=== PATIENT | male | born 1950 | race Caucasian/White ===

== ENCOUNTER 2022-08-04 05:35 | Inpatient (IN) | payer MEDICARE, OTHER ==
[~2022-08-04] VITALS: Ht 175.3 cm; Wt 76.5 kg
[~2022-08-04 05:35] MED LIST: DICL100G51 TP; DULA0.75 SQ; ENAL20 PO; FLUT220HFA IH; FLUT44H IH; GABA-1216 PO; GLUC1TAB61 PO; ISOSM20 PO; LORA10TA7 PO; METF-1211 PO; OMEP20 PO; RINGERS SOLUTION,LACTATED 1,000 ML IV ONE; TAMS-13 PO
[2022-08-04] MEDS ORDERED: ETHYL ALCOHOL 62% ANTISEPTIC NASAL SANITIZER 0.6 ML AMPUL NASAL ONE (06:00)
[2022-08-04 06:29] LABS: COVID AG,FIA SOURCE NASAL SWAB
[2022-08-04 06:32] LABS: BASOPHILS % (AUTO) 1.8 % (0.0-2.0); EOSINOPHILS % (AUTO) 5.7 % (1.0-6.0); HEMATOCRIT 41.2 % (41-53); HEMOGLOBIN 13.8 g/dL (13.5-17.5); LYMPHOCYTES # (AUTO) 1.1 K/uL (1.0-4.8); LYMPHOCYTES % (AUTO) 24.6 % (22.0-44.0); MEAN CORPUSCULAR HEMOGLOBIN 30.2 pg (26.0-34.0); MEAN CORPUSCULAR HGB CONC 33.5 G/dL (31.0-37.0); MEAN CORPUSCULAR VOLUME 90 fL (80-100); MONOCYTES # (AUTO) 0.6 K/uL (0.1-1.0); MONOCYTES % (AUTO) 14.3 % (2.0-9.0); NEUTROPHILS # (AUTO) 2.4 K/uL (1.8-7.7); NEUTROPHILS % (AUTO) 53.6 % (40.0-70.0); PLATELET COUNT (AUTO) 287 K/uL (150-450); RED BLOOD CELL COUNT(AUTO) 4.57 MIL/uL (4.50-5.90); RED CELL DISTRIBUTION WIDTH 13.9 % (11.5-14.5)
[2022-08-04] MEDS ORDERED: VANCOMYCIN HCL 1 GM/VIAL ONE (06:44)
[2022-08-04] MEDS ORDERED: SODIUM CL IRRIG SOLN BAG 3,000 ML IRRIG ONE (06:44)
[2022-08-04] MEDS ORDERED: BUPIVACAINE HCL/PF 0.5% 30 ML VIAL ONE (06:44)
[2022-08-04] MEDS ORDERED: SODIUM CHLORIDE 0.9% 60 ML ONE (06:44)
[2022-08-04 06:45] LABS: PROTHROMBIN TIME 10.6 SEC (9.4-11.6)
[2022-08-04] MEDS ORDERED: CYCLOBENZAPRINE HCL 10 MG TABLET PO PRN (06:45)
[2022-08-04] MEDS ORDERED: FentaNYL CITRATE PF 100 MCG/2 ML VIAL IVP PRN (06:45)
[2022-08-04] MEDS ORDERED: ZOLPIDEM TARTRATE 5 MG TABLET PO PRN (06:45)
[2022-08-04] MEDS ORDERED: MEPERIDINE-PF 25 MG/ML VIAL IVP PRN (06:45)
[2022-08-04] MEDS ORDERED: HYDROmorphone HCL 2 MG/ML SYRINGE IVP PRN ×2 (06:45)
[2022-08-04] MEDS ORDERED: OxyCODONE HCL 5 MG IR TABLET PO PRN (06:45)
[2022-08-04] MEDS ORDERED: ONDANSETRON HCL 4 MG/2 ML VIAL IVP PRN (06:45)
[2022-08-04 06:53] LABS: ANION GAP 9 mmol/L (8-16); CALCIUM, TOTAL 8.9 mg/dL (8.8-10.5); CARBON DIOXIDE 27 mmol/L (22-29); CHLORIDE 98 mmol/L (98-107); CREATININE 0.77 mg/dL (0.60-1.30); GLOMERULAR FILTR. RATE CALC > 60 mL/min (>60); GLUCOSE,RANDOM 168 mg/dL (70-110); POTASSIUM 4.1 mmol/L (3.5-5.1); SODIUM SERUM 134 mmol/L (136-145); UREA NITROGEN, BLOOD 15 mg/dL (7-18)
[2022-08-04] MEDS ORDERED: RANO500T6 PO (06:53)
[2022-08-04] MEDS ORDERED: ISOS30TA68 PO (06:53)
[2022-08-04] MEDS ORDERED: METO25 PO (06:53)
[2022-08-04] MEDS ORDERED: ENAL-87 PO (06:53)
[2022-08-04] MEDS ORDERED: LATA2.5D14 OU (06:55)
[2022-08-04] MEDS: ACETAMINOPHEN 1000 MG/ISO-OSM 100 ML IV SCH ×3 (06:58→20:28)
[2022-08-04] MEDS ORDERED: BUPIVACAINE LIPOSOME/PF 1.3%-13.3MG/ML SUSPENSION 20 ML VIAL INJ ONE (07:00)
[2022-08-04] MEDS ORDERED: TRANEXAMIC ACID 1,000 MG in DEXTROSE 5%-WATER 50 ML IV ONE (07:00)
[2022-08-04 07:01] LABS: ALANINE AMINOTRANSFERASE 26 U/L (12-78); ALBUMIN 3.6 g/dL (3.4-5.0); ALKALINE PHOSPHATASE 66 U/L (46-116); ASPARTATE AMINOTRANSFERASE 21 U/L (15-37); BILIRUBIN,TOTAL 0.4 mg/dL (0.1-1.0); TOTAL PROTEIN, SERUM 7.3 g/dL (6.4-8.2)
[2022-08-04] MEDS ORDERED: CELECOXIB 200 MG CAPSULE PO ONE (08:00)
[2022-08-04 08:16] LABS: GLUCOMETER DEV NAME(LOC) SDS.; GLUCOSE,POINT OF CARE 151 MG/DL (70-110)
[2022-08-04] MEDS ORDERED: BISACODYL 10 MG RECTAL RECTAL SUPPOSITORY PR PRN (09:30)
[2022-08-04] MEDS ORDERED: DiphenhydrAMINE HCL 50 MG/ML VIAL IVP PRN (09:30)
[2022-08-04] MEDS ORDERED: MAG HYDROX/AL HYDROX/SIMETH 30 ML SUSP UDCUP PO PRN (09:30)
[2022-08-04] MEDS ORDERED: BENZOCAINE/MENTHOL LOZENGE PO PRN (09:30)
[2022-08-04] MEDS ORDERED: DEXTROSE 50%-WATER 25 GM/50 ML SYRINGE IVP PRN (11:15)
[2022-08-04] MEDS ORDERED: DULA1.5P SQ (11:24)
[2022-08-04] MEDS ORDERED: ATOR20TA65 PO (11:24)
[2022-08-04 11:36] LABS: GLUCOMETER DEV NAME(LOC) SDS.; GLUCOSE,POINT OF CARE 133 MG/DL (70-110)
[2022-08-04 12:00] VITALS: BP 153/88
[2022-08-04] MEDS ORDERED: EPHEDrine SULFATE 50 MG/ML VIAL IM ONE (12:00)
[2022-08-04] MEDS ORDERED: PHENYLEPHRINE HCL 10 MG/ML VIAL IVP ONE (12:00)
[2022-08-04] MEDS ORDERED: FentaNYL CITRATE PF 100 MCG/2 ML VIAL IVP ONE (12:00)
[2022-08-04] MEDS ORDERED: 0.9% SODIUM CHLORIDE 10 ML VIAL IVP ONE (12:00)
[2022-08-04] MEDS ORDERED: PROPOFOL 1% 20 ML VIAL IVP ONE (12:00)
[2022-08-04] MEDS ORDERED: ACETAMINOPHEN 1000 MG/ISO-OSM 100 ML IV ONE (12:45)
[2022-08-04] MEDS: CeFAZolin 2 GM/DEXTROSE 50 ML IV SCH (15:03)
[2022-08-04 16:11] VITALS: BP 157/92
[2022-08-04 19:41] VITALS: BP 140/95
[2022-08-04] MEDS: OXYGEN THERAPY IH SCH ×2 (20:28→20:32)
[2022-08-04] MEDS: CELECOXIB 200 MG CAPSULE PO SCH (20:29)
[2022-08-04] MEDS: RANOLAZINE 500 MG ER TABLET PO SCH (20:29)
[2022-08-04] MEDS: LATANOPROST 0.005% 2.5 ML OPHTHALMIC SOLUTION OU SCH (20:30)
[2022-08-04] MEDS: DOCUSATE SODIUM 100 MG CAPSULE PO SCH (20:30)
[2022-08-04] MEDS: FAMOTIDINE 20 MG TABLET PO SCH (20:30)
[2022-08-04] MEDS: METOPROLOL TARTRATE 25 MG TABLET PO SCH (20:30)
[2022-08-04] MEDS: INSULIN LISPRO 100 UNITS/ML SQ PRN (20:32)
[2022-08-05 00:20] VITALS: BP 151/89
[2022-08-05] MEDS: ACETAMINOPHEN 1000 MG/ISO-OSM 100 ML IV SCH (00:22)
[2022-08-05] MEDS: CeFAZolin 2 GM/DEXTROSE 50 ML IV SCH (00:25)
[2022-08-05 04:43] VITALS: BP 139/77
[2022-08-05] MEDS: INSULIN LISPRO 100 UNITS/ML SQ PRN ×4 (06:18→20:36)
[2022-08-05 06:53] LABS: BASOPHILS % (AUTO) 0.6 % (0.0-2.0); EOSINOPHILS % (AUTO) 2.4 % (1.0-6.0); HEMATOCRIT 36.6 % (41-53); HEMOGLOBIN 12.7 g/dL (13.5-17.5); LYMPHOCYTES # (AUTO) 0.8 K/uL (1.0-4.8); LYMPHOCYTES % (AUTO) 10.3 % (22.0-44.0); MEAN CORPUSCULAR HEMOGLOBIN 31.1 pg (26.0-34.0); MEAN CORPUSCULAR HGB CONC 34.6 G/dL (31.0-37.0); MEAN CORPUSCULAR VOLUME 90 fL (80-100); MONOCYTES # (AUTO) 1.1 K/uL (0.1-1.0); MONOCYTES % (AUTO) 14.9 % (2.0-9.0); NEUTROPHILS # (AUTO) 5.3 K/uL (1.8-7.7); NEUTROPHILS % (AUTO) 71.8 % (40.0-70.0); PLATELET COUNT (AUTO) 250 K/uL (150-450); RED BLOOD CELL COUNT(AUTO) 4.07 MIL/uL (4.50-5.90); RED CELL DISTRIBUTION WIDTH 14.2 % (11.5-14.5)
[2022-08-05 07:22] LABS: ANION GAP 4 mmol/L (8-16); CALCIUM, TOTAL 8.1 mg/dL (8.8-10.5); CARBON DIOXIDE 30 mmol/L (22-29); CHLORIDE 99 mmol/L (98-107); GLOMERULAR FILTR. RATE CALC > 60 mL/min (>60); GLUCOSE,RANDOM 173 mg/dL (70-110); POTASSIUM 4.1 mmol/L (3.5-5.1); SODIUM SERUM 133 mmol/L (136-145); UREA NITROGEN, BLOOD 15 mg/dL (7-18)
[2022-08-05 07:58] VITALS: BP 131/74
[2022-08-05] MEDS: OXYGEN THERAPY IH SCH ×2 (08:00→20:37)
[2022-08-05] MEDS: ASPIRIN 81 MG CHEWABLE TABLET PO SCH ×2 (09:02→20:35)
[2022-08-05] MEDS: CELECOXIB 200 MG CAPSULE PO SCH ×2 (09:02→20:35)
[2022-08-05] MEDS: LISINOPRIL 5 MG TABLET PO SCH (09:03)
[2022-08-05] MEDS: ISOSORBIDE MONONITRATE 30 MG ER TABLET PO SCH (09:03)
[2022-08-05] MEDS: DOCUSATE SODIUM 100 MG CAPSULE PO SCH ×2 (09:03→20:35)
[2022-08-05] MEDS: FAMOTIDINE 20 MG TABLET PO SCH ×2 (09:03→20:35)
[2022-08-05] MEDS: METOPROLOL TARTRATE 25 MG TABLET PO SCH ×2 (09:03→20:35)
[2022-08-05] MEDS: TAMSULOSIN HCL 0.4 MG CAPSULE PO SCH (09:03)
[2022-08-05] MEDS: OMEPRAZOLE 20 MG CAPSULE PO SCH (09:04)
[2022-08-05] MEDS: RANOLAZINE 500 MG ER TABLET PO SCH ×2 (09:09→20:35)
[2022-08-05 09:21] LABS: GLUCOMETER DEV NAME(LOC) 5S.2B; GLUCOSE,POINT OF CARE 158 MG/DL (70-110)
[2022-08-05 09:21] LABS: GLUCOMETER DEV NAME(LOC) 5S.2B; GLUCOSE,POINT OF CARE 180 MG/DL (70-110)
[2022-08-05] MEDS: OxyCODONE HCL/ACETAMINOPHEN 10-325 MG TABLET PO PRN ×2 (11:35→14:43)
[2022-08-05 12:04] VITALS: BP 129/72
[2022-08-05 12:06] LABS: GLUCOMETER DEV NAME(LOC) 5S.2B; GLUCOSE,POINT OF CARE 227 MG/DL (70-110)
[2022-08-05] MEDS: MAGNESIUM HYDROXIDE SUSPENSION 30 ML UDCUP PO PRN (12:37)
[2022-08-05 15:55] VITALS: BP 145/76
[2022-08-05 19:11] LABS: GLUCOMETER DEV NAME(LOC) 5S.2B; GLUCOSE,POINT OF CARE 211 MG/DL (70-110)
[2022-08-05] MEDS: LATANOPROST 0.005% 2.5 ML OPHTHALMIC SOLUTION OU SCH (20:35)
[2022-08-05 20:40] VITALS: BP 12/69
[2022-08-06] VITALS (7 sets, daily range): BP systolic 117–134; BP diastolic 66–86
[2022-08-06 01:51] LABS: GLUCOMETER DEV NAME(LOC) 5S.1B; GLUCOSE,POINT OF CARE 216 MG/DL (70-110)
[2022-08-06] MEDS: INSULIN LISPRO 100 UNITS/ML SQ PRN ×4 (06:07→21:37)
[2022-08-06 07:09] LABS: BASOPHILS % (AUTO) 0.4 % (0.0-2.0); EOSINOPHILS % (AUTO) 2.1 % (1.0-6.0); HEMATOCRIT 32.8 % (41-53); HEMOGLOBIN 11.5 g/dL (13.5-17.5); LYMPHOCYTES # (AUTO) 0.8 K/uL (1.0-4.8); LYMPHOCYTES % (AUTO) 8.4 % (22.0-44.0); MEAN CORPUSCULAR HEMOGLOBIN 31.4 pg (26.0-34.0); MEAN CORPUSCULAR HGB CONC 35.1 G/dL (31.0-37.0); MEAN CORPUSCULAR VOLUME 90 fL (80-100); MONOCYTES # (AUTO) 1.1 K/uL (0.1-1.0); MONOCYTES % (AUTO) 12.2 % (2.0-9.0); NEUTROPHILS # (AUTO) 7.2 K/uL (1.8-7.7); NEUTROPHILS % (AUTO) 76.9 % (40.0-70.0); PLATELET COUNT (AUTO) 240 K/uL (150-450); RED BLOOD CELL COUNT(AUTO) 3.66 MIL/uL (4.50-5.90); RED CELL DISTRIBUTION WIDTH 13.9 % (11.5-14.5)
[2022-08-06 07:31] LABS: CALCIUM, TOTAL 8.2 mg/dL (8.8-10.5); CHLORIDE 94 mmol/L (98-107); CREATININE 0.88 mg/dL (0.60-1.30); GLOMERULAR FILTR. RATE CALC > 60 mL/min (>60); GLUCOSE,RANDOM 182 mg/dL (70-110); POTASSIUM 4.8 mmol/L (3.5-5.1); SODIUM SERUM 125 mmol/L (136-145); UREA NITROGEN, BLOOD 18 mg/dL (7-18)
[2022-08-06 07:49] LABS: ANION GAP 5 mmol/L (8-16); CARBON DIOXIDE 26 mmol/L (22-29)
[2022-08-06] MEDS: OXYGEN THERAPY IH SCH ×2 (08:00→21:32)
[2022-08-06] MEDS: OxyCODONE HCL/ACETAMINOPHEN 10-325 MG TABLET PO PRN ×4 (08:38→18:53)
[2022-08-06] MEDS: ASPIRIN 81 MG CHEWABLE TABLET PO SCH ×2 (09:11→21:35)
[2022-08-06] MEDS: CELECOXIB 200 MG CAPSULE PO SCH ×2 (09:12→21:35)
[2022-08-06] MEDS: DOCUSATE SODIUM 100 MG CAPSULE PO SCH ×2 (09:12→21:00)
[2022-08-06] MEDS: TAMSULOSIN HCL 0.4 MG CAPSULE PO SCH (09:12)
[2022-08-06] MEDS: METOPROLOL TARTRATE 25 MG TABLET PO SCH ×2 (09:12→21:35)
[2022-08-06] MEDS: FAMOTIDINE 20 MG TABLET PO SCH ×2 (09:12→21:35)
[2022-08-06] MEDS: ISOSORBIDE MONONITRATE 30 MG ER TABLET PO SCH (09:12)
[2022-08-06] MEDS: OMEPRAZOLE 20 MG CAPSULE PO SCH (09:13)
[2022-08-06] MEDS: LISINOPRIL 5 MG TABLET PO SCH (09:13)
[2022-08-06] MEDS: RANOLAZINE 500 MG ER TABLET PO SCH ×2 (09:13→21:35)
[2022-08-06 11:41] LABS: GLUCOMETER DEV NAME(LOC) 5S.2B; GLUCOSE,POINT OF CARE 183 MG/DL (70-110)
[2022-08-06 16:53] LABS: ANION GAP 4 mmol/L (8-16); CALCIUM, TOTAL 8.4 mg/dL (8.8-10.5); CARBON DIOXIDE 28 mmol/L (22-29); CHLORIDE 92 mmol/L (98-107); CREATININE 1.07 mg/dL (0.60-1.30); GLOMERULAR FILTR. RATE CALC > 60 mL/min (>60); GLUCOSE,RANDOM 186 mg/dL (70-110); POTASSIUM 4.9 mmol/L (3.5-5.1); UREA NITROGEN, BLOOD 23 mg/dL (7-18)
[2022-08-06 17:01] LABS: SODIUM SERUM 124 mmol/L (136-145)
[2022-08-06 17:26] LABS: GLUCOMETER DEV NAME(LOC) 5S.1B; GLUCOSE,POINT OF CARE 229 MG/DL (70-110)
[2022-08-06] MEDS: LATANOPROST 0.005% 2.5 ML OPHTHALMIC SOLUTION OU SCH (21:35)
[2022-08-06 22:21] LABS: GLUCOMETER DEV NAME(LOC) 5S.1B; GLUCOSE,POINT OF CARE 174 MG/DL (70-110)
[2022-08-07 04:51] VITALS: BP 130/78
[2022-08-07 06:41] LABS: BASOPHILS % (AUTO) 0.4 % (0.0-2.0); EOSINOPHILS % (AUTO) 4.2 % (1.0-6.0); HEMATOCRIT 32.5 % (41-53); HEMOGLOBIN 11.3 g/dL (13.5-17.5); LYMPHOCYTES # (AUTO) 0.9 K/uL (1.0-4.8); LYMPHOCYTES % (AUTO) 12.1 % (22.0-44.0); MEAN CORPUSCULAR HEMOGLOBIN 31.2 pg (26.0-34.0); MEAN CORPUSCULAR HGB CONC 34.7 G/dL (31.0-37.0); MEAN CORPUSCULAR VOLUME 90 fL (80-100); MONOCYTES % (AUTO) 13.9 % (2.0-9.0); NEUTROPHILS # (AUTO) 5.2 K/uL (1.8-7.7); NEUTROPHILS % (AUTO) 69.4 % (40.0-70.0); PLATELET COUNT (AUTO) 263 K/uL (150-450); RED BLOOD CELL COUNT(AUTO) 3.62 MIL/uL (4.50-5.90); RED CELL DISTRIBUTION WIDTH 14.3 % (11.5-14.5)
[2022-08-07] MEDS: OXYGEN THERAPY IH SCH (08:00)
[2022-08-07 08:04] VITALS: BP 152/73
[2022-08-07] MEDS: OMEPRAZOLE 20 MG CAPSULE PO SCH (09:56)
[2022-08-07] MEDS: CELECOXIB 200 MG CAPSULE PO SCH (09:56)
[2022-08-07] MEDS: LISINOPRIL 5 MG TABLET PO SCH (09:56)
[2022-08-07] MEDS: METOPROLOL TARTRATE 25 MG TABLET PO SCH (09:56)
[2022-08-07] MEDS: ASPIRIN 81 MG CHEWABLE TABLET PO SCH (09:56)
[2022-08-07] MEDS: DOCUSATE SODIUM 100 MG CAPSULE PO SCH (09:56)
[2022-08-07] MEDS: TAMSULOSIN HCL 0.4 MG CAPSULE PO SCH (09:56)
[2022-08-07] MEDS: FAMOTIDINE 20 MG TABLET PO SCH (09:57)
[2022-08-07] MEDS: ISOSORBIDE MONONITRATE 30 MG ER TABLET PO SCH (09:57)
[2022-08-07] MEDS: RANOLAZINE 500 MG ER TABLET PO SCH (09:57)
[2022-08-07] MEDS: MAGNESIUM HYDROXIDE SUSPENSION 30 ML UDCUP PO PRN (10:02)
[2022-08-07 11:15] VITALS: BP 132/70
[2022-08-07 11:15] LABS: ANION GAP 4 mmol/L (8-16); CALCIUM, TOTAL 8.5 mg/dL (8.8-10.5); CARBON DIOXIDE 27 mmol/L (22-29); CHLORIDE 98 mmol/L (98-107); CREATININE 0.84 mg/dL (0.60-1.30); GLOMERULAR FILTR. RATE CALC > 60 mL/min (>60); GLUCOSE,RANDOM 156 mg/dL (70-110); POTASSIUM 4.7 mmol/L (3.5-5.1); SODIUM SERUM 129 mmol/L (136-145); UREA NITROGEN, BLOOD 18 mg/dL (7-18)
[2022-08-07] MEDS: OxyCODONE HCL/ACETAMINOPHEN 10-325 MG TABLET PO PRN (12:57)
[2022-08-07] MEDS: INSULIN LISPRO 100 UNITS/ML SQ PRN ×2 (13:01→18:04)
[2022-08-07] MEDS ORDERED: SODIUM CHLORIDE 1 GM TABLET PO ONE (13:30)
[2022-08-07 15:08] LABS: COVID AG,FIA SOURCE NASAL SWAB
[2022-08-07 15:29] VITALS: BP 103/62
[2022-08-07] MEDS ORDERED: ASPI81TA39 PO (15:38)
[2022-08-07] MEDS ORDERED: DOCU-385 PO (15:39)
[2022-08-07] MEDS ORDERED: CELE-84 PO (15:39)
[2022-08-07] MEDS ORDERED: FAMO20 PO (15:40)
[2022-08-07] MEDS ORDERED: LISI-660 PO (15:40)
[2022-08-07] MEDS ORDERED: OMEP20 PO (15:41)
[2022-08-07] MEDS ORDERED: BENZ1LOZ77 PO (15:42)
[2022-08-07] MEDS ORDERED: CYCL-397 PO (15:43)
[2022-08-07] MEDS ORDERED: BISA10SU61 PR (15:43)
[2022-08-07] MEDS ORDERED: MAGN-169 PO (15:44)
[2022-08-07] MEDS ORDERED: MAG-93 PO (15:44)
[2022-08-07] MEDS ORDERED: OXYC-43 PO ×2 (15:45)
[2022-08-07] MEDS ORDERED: ZOLP10TA8 PO ×2 (15:45→15:46)
[2022-08-07 20:16] LABS: GLUCOMETER DEV NAME(LOC) 5S.2B; GLUCOSE,POINT OF CARE 178 MG/DL (70-110)
[2022-08-07 20:16] LABS: GLUCOMETER DEV NAME(LOC) 5S.2B; GLUCOSE,POINT OF CARE 155 MG/DL (70-110)
== END 2022-08-07 18:15 | DRG 470 ==
LOC: 6N 05:35 → 5S 13:20
PROVIDERS: ADMIT Orthopaedic Surgery; ATTEND Internal Medicine
PROC: 0SRD0J9 Replacement of Left Knee Joint with Synthetic Substitute, Cemented, Open Approach (ICD-10-PCS; principal; 2022-08-04 07:30)
DX: M17.12 Unilateral primary osteoarthritis, left knee (principal); E87.1 Hypo-osmolality and hyponatremia; E78.5 Hyperlipidemia, unspecified; I11.9 Hypertensive heart disease without heart failure; K21.9 Gastro-esophageal reflux disease without esophagitis; N40.0 Benign prostatic hyperplasia without lower urinary tract symptoms; E11.9 Type 2 diabetes mellitus without complications; G89.29 Other chronic pain; I25.10 Atherosclerotic heart disease of native coronary artery without angina pectoris; K74.60 Unspecified cirrhosis of liver; M65.9 Synovitis and tenosynovitis, unspecified; Z20.822 Contact with and (suspected) exposure to COVID-19; Z83.3 Family history of diabetes mellitus; Z95.0 Presence of cardiac pacemaker; Z79.899 Other long term (current) drug therapy; H40.9 Unspecified glaucoma
CPT/HCPCS: 80048; 80053; 82962; 85025; 85610; 85730; 87081; 97110; 97116; 97162; 97165; 97530; 97535; C9290; J0131; J0690; J1170; J2370; J2704; J3010; J3370; J3490; J7060